=== PATIENT | female | born 1945 | race Caucasian/White ===

== ENCOUNTER 2019-11-07 14:16 | Inpatient (IN) | payer MEDICARE ==
[~2019-11-07] VITALS: Ht 149.9 cm; Wt 59.3 kg
[2019-11-07 15:00] VITALS: BP 160/70
[2019-11-07] MEDS ORDERED: diphenhydrAMINE 25mg capsule PO PRN (15:00)
[2019-11-07] MEDS ORDERED: ondansetron/PF 4mg/2ml inj IV PRN (15:00)
[2019-11-07] MEDS ORDERED: mag hydrox/Alum hydrox/simeth 30ml oral suspension PO PRN (15:00)
[2019-11-07] MEDS ORDERED: magnesium 2GM in 50ml NS 50 ML IV PRN (15:00)
[2019-11-07] MEDS ORDERED: potassium CL 10mEq/100ml bag 100 ML IV PRN ×2 (15:00)
[2019-11-07] MEDS ORDERED: magnesium 4gm in 100ml NS 100 ML IV PRN (15:00)
[2019-11-07] MEDS ORDERED: bisacodyl 10mg suppository rectal RC PRN (15:00)
[2019-11-07] MEDS ORDERED: potassium Cl 20 mEq SR tablet PO PRN ×2 (15:00)
[2019-11-07] MEDS ORDERED: acetaminophen 325mg tablet PO PRN (15:00)
[2019-11-07] MEDS ORDERED: magnesium hydroxide 30ml (MOM) UD suspension PO PRN (15:00)
[2019-11-07] MEDS ORDERED: acetaminophen 650mg rectal suppository RC PRN (15:00)
[2019-11-07] MEDS ORDERED: magnesium Cl slow-release 64mg tablet PO PRN (15:00)
[2019-11-07] MEDS: normal saline 1000ml 1,000 ML IV SCH (15:21)
[2019-11-07 15:26] LABS: HEMOGLOBIN 13.4 g/dl (12.0-16.0); RED BLOOD COUNT 4.17 X10'6 (4.20-5.60); WHITE BLOOD COUNT 7.2 X10'3 (4.5-11.0)
[2019-11-07 15:27] LABS: BASOPHILS % (AUTO) 0.6 % (0-1); EOSINOPHILS # (AUTO) 0.1 X10'3 (0-0.9); HEMATOCRIT 39.8 % (35.0-45.0); LYMPHOCYTES # (AUTO) 2.5 X10'3 (1.1-4.8); LYMPHOCYTES % (AUTO) 34.9 % (21-51); MEAN CORPUSCULAR HGB CONC 33.5 g/dL (33.0-36.5); MEAN CORPUSCULAR VOLUME 95.5 FL (78-98); MEAN PLATELET VOLUME 8.4 FL (7.4-10.4); MONOCYTES # (AUTO) 0.8 X10'3 (0-0.9); MONOCYTES % (AUTO) 10.6 % (2-12); NEUTROPHILS # (AUTO) 3.7 X10'3 (1.8-7.7); NEUTROPHILS % (AUTO) 51.9 % (42-75); PLATELET COUNT 274 X10'3 (140-440); RED CELL DISTRIBUTION WIDTH 13.3 % (11.5-14.5)
[2019-11-07 15:37] LABS: HEMOGLOBIN A1C 5.8 % (4.5-6.2)
[2019-11-07 15:40] LABS: PARTIAL THROMBOPLASTIN TIME 24 SECONDS (22-32)
[2019-11-07 15:51] LABS: ALANINE AMINOTRANSFERASE 20 U/L (12-78); ALBUMIN 3.4 G/DL (3.4-5.0); ALBUMIN/GLOBULIN RATIO 0.9 (1.1-1.5); ALKALINE PHOSPHATASE 65 IU/L (46-116); ANION GAP 7 (8-16); ASPARTATE AMINO TRANSFERASE 15 U/L (10-37); BILIRUBIN,TOTAL 0.4 MG/DL (0.1-1.0); BLOOD UREA NITROGEN 20 MG/DL (7-18); BUN/CREATININE RATIO 21.1 (6.6-38.0); CALCIUM 9.2 MG/DL (8.5-10.1); CHLORIDE 107 MMOL/L (99-107); CREATININE 0.95 MG/DL (0.40-0.90); GLUCOSE 132 MG/DL (70-104); MAGNESIUM 1.8 MG/DL (1.5-2.4); PHOSPHORUS 2.8 MG/DL (2.3-4.5); POTASSIUM 3.6 MMOL/L (3.5-5.1); SODIUM 142 MMOL/L (135-145); TOTAL CARBON DIOXIDE 27.7 MMOL/L (24-32); TOTAL PROTEIN 7.3 G/DL (6.4-8.2); eGFR 57 ML/MIN
--- NOTE | 2019-11-07 15:51 | NUR ---
PAGED ECHO "ECHO ORDERED FOR 315, IF YOU CAN COMPLETE IT BEFORE 1800 THAT WOULD BE GREAT, THANK YOU, HERACLIO MARION [id number]"
[2019-11-07 17:06] LABS: CLARITY,URINE SLIGHTLY CLOUDY (Clear); COLOR,URINE STRAW (Yellow); GLUCOSE, URINE NEGATIVE (Neg); KETONES,URINE NEGATIVE (Neg); LEUKOCYTE ESTERASE ,URINE SMALL (Neg); NITRITES, URINE NEGATIVE (Neg); OCCULT BLOOD,URINE SMALL (Neg); PROTEIN,URINE NEGATIVE (Neg); UROBILINOGEN,URINE 0.2 E.U/dL (0.2-1.0)
[2019-11-07] MEDS ORDERED: LISI1TAB28 PO ×2 (17:12→17:26)
[2019-11-07 17:15] LABS: UA COLLECTION TYPE CLN CATCH MIDSTREAM
[2019-11-07 17:17] LABS: MUCUS STRANDS NONE SEEN /LPF (Neg); SQUAMOUS EPITHELIAL CELL,UR FEW /LPF (FEW); TRANSITIONAL EPI CELLS,URINE FEW /HPF
[2019-11-07 17:19] LABS: BACTERIA,URINE NONE SEEN /HPF (Neg); WBC,URINE 0-4 /HPF (0-4)
--- NOTE | 2019-11-07 18:16 | NUR ---
Problems reprioritized. Patient report given, questions answered & plan of care reviewed with PRAMOD MARCUS.
--- NOTE | 2019-11-07 18:32 | NUR ---
patient taken to OR for pacemaker placement.
[2019-11-07] MEDS ORDERED: midazolam 2 mg/2 ml injection ONE (18:38)
[2019-11-07] MEDS ORDERED: LIDOcaine 1% W/epiNEPHrine 1:100,000 20ml vial ONE ×2 (18:38→19:40)
[2019-11-07] MEDS ORDERED: ceFAZolin 1000mg inj ONE (18:38)
[2019-11-07] MEDS ORDERED: proCHLORperazine 10 MG/2 ml inj ONE (18:38)
[2019-11-07] MEDS ORDERED: cefazolin/dext.iso 2gm/100ml 100 ML IV ONE (18:50)
[2019-11-07] MEDS ORDERED: magnesium 1 GM/2 ML inj ONE (19:25)
[2019-11-07] MEDS ORDERED: fentaNYL/PF 50MCG/1 ML 2ML syringe ONE (19:41)
[2019-11-07] MEDS: K and/or MAG REPLACEMENT MC SCH (20:00)
--- NOTE | 2019-11-07 20:41 | NUR ---
patient back to floor after Dual chamber pacemaker placement. Patient is alert, oriented x4. not under any stress.
[2019-11-07] MEDS: heparin, porcine 5000 units/ml vial SQ SCH (21:29)
[2019-11-07] MEDS: ibuprofen tablet 400 MG TABLET PO SCH (21:29)
[2019-11-07] MEDS ORDERED: HYDROcodone/acetaminophen 5mg/325mg tablet PO PRN (21:30)
[2019-11-07] MEDS ORDERED: HYDROcodone/acetaminophen 10/325mg tab PO PRN (21:30)
[2019-11-07 22:00] VITALS: BP 153/96
[2019-11-08] MEDS: CefTRIAXone/D5W-Rocephin 1gm 50 ML IV SCH ×2 (00:56→08:09)
--- NOTE | 2019-11-08 01:56 | NUR ---
Paged Dr. 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 Waiting for call back from Dr. Vargas. Addendum: 11/08/19 at 0224 by Jeannette Nielsen RN Dr. Vargas called acknowledged regarding the symptomatic failure to capture of the dual chamber pacemaker with the longest pause being 1.2 second. He ordered to interrogate her pacemaker. No other orders were given at this time.
[2019-11-08 02:00] VITALS: BP 154/80
[2019-11-08 04:00] LABS: BASOPHILS % (AUTO) 0.4 % (0-1); EOSINOPHILS # (AUTO) 0.1 X10'3 (0-0.9); EOSINOPHILS % (AUTO) 0.6 % (0-6); HEMATOCRIT 38.2 % (35.0-45.0); HEMOGLOBIN 12.8 g/dl (12.0-16.0); LYMPHOCYTES # (AUTO) 2.3 X10'3 (1.1-4.8); LYMPHOCYTES % (AUTO) 24.6 % (21-51); MEAN CORPUSCULAR HEMOGLOBIN 31.9 PG (27.0-31.0); MEAN CORPUSCULAR HGB CONC 33.5 g/dL (33.0-36.5); MEAN CORPUSCULAR VOLUME 95.2 FL (78-98); MEAN PLATELET VOLUME 8.2 FL (7.4-10.4); MONOCYTES # (AUTO) 0.7 X10'3 (0-0.9); MONOCYTES % (AUTO) 7.9 % (2-12); NEUTROPHILS # (AUTO) 6.2 X10'3 (1.8-7.7); NEUTROPHILS % (AUTO) 66.5 % (42-75); PLATELET COUNT 245 X10'3 (140-440); RED BLOOD COUNT 4.02 X10'6 (4.20-5.60); RED CELL DISTRIBUTION WIDTH 13.1 % (11.5-14.5); WHITE BLOOD COUNT 9.3 X10'3 (4.5-11.0)
[2019-11-08] MEDS: acetaminophen 325mg tablet PO PRN ×2 (04:01→12:17)
[2019-11-08] MEDS: normal saline 1000ml 1,000 ML IV SCH ×2 (04:02→18:18)
[2019-11-08 04:10] LABS: ALANINE AMINOTRANSFERASE 16 U/L (12-78); ALBUMIN 3.2 G/DL (3.4-5.0); ALBUMIN/GLOBULIN RATIO 0.9 (1.1-1.5); ALKALINE PHOSPHATASE 62 IU/L (46-116); ANION GAP 11 (8-16); ASPARTATE AMINO TRANSFERASE 16 U/L (10-37); BILIRUBIN,TOTAL 0.4 MG/DL (0.1-1.0); BLOOD UREA NITROGEN 14 MG/DL (7-18); BUN/CREATININE RATIO 19.7 (6.6-38.0); CALCIUM 8.6 MG/DL (8.5-10.1); CHLORIDE 108 MMOL/L (99-107); CHOL/HDL RATIO 2.5 (0.00-4.99); CHOLESTEROL 171 MG/DL (0-200); CREATININE 0.71 MG/DL (0.40-0.90); GLUCOSE 88 MG/DL (70-104); HDL CHOLESTEROL 68 MG/DL (35-60); LDL CHOLESTEROL 100 MG/DL (50-100); MAGNESIUM 1.7 MG/DL (1.5-2.4); PHOSPHORUS 3.6 MG/DL (2.3-4.5); POTASSIUM 3.4 MMOL/L (3.5-5.1); SODIUM 142 MMOL/L (135-145); TOTAL CARBON DIOXIDE 22.6 MMOL/L (24-32); TOTAL PROTEIN 6.9 G/DL (6.4-8.2); TRIGLYCERIDES 36 MG/DL (20-135); eGFR 80 ML/MIN
--- NOTE | 2019-11-08 04:20 | NUR ---
Called [employer] to have pacemaker interrogated. [employer] said that they paged a site safety representative and they will call us back to proceed. Addendum: 11/08/19 at 0443 by Mili De Anda RN [employer] called back and interrogated. Will send a site safety representative in person this am.
--- NOTE | 2019-11-08 06:31 | NUR ---
Problems reprioritized. Patient report given to Pat-RN, questions answered & plan of care reviewed with .
[2019-11-08 06:35] VITALS: BP 146/74
[2019-11-08] MEDS: K and/or MAG REPLACEMENT MC SCH ×2 (07:57→20:00)
[2019-11-08] MEDS: heparin, porcine 5000 units/ml vial SQ SCH ×2 (08:00→19:38)
[2019-11-08] MEDS: ibuprofen tablet 400 MG TABLET PO SCH ×4 (08:22→23:08)
[2019-11-08] MEDS ORDERED: lisinopril 20mg tablet PO SCH (08:53)
[2019-11-08 11:00] VITALS: BP 154/87
[2019-11-08] MEDS: HYDROchlorothiazide 12.5mg capsule PO SCH (14:47)
[2019-11-08 15:00] VITALS: BP 122/71
[2019-11-08 18:00] VITALS: BP 176/96
--- NOTE | 2019-11-08 18:00 | NUR ---
PATIENT'S PPM HAS BEEN 100% PACED THROUGHOUT THE SHIFT.B/P UP 170 SYS; DR. RIOS APPRISED, ORDERS TO FOLLOW. REPORTED OFF TO [place] LINER. DR. HARRIS INTO SEE PATIENT AT THIS TIME. HOB UP CALL LIGHT IN REACH. Addendum: 11/08/19 at 1933 by Dulce Maria Loera RN Amended: Links added.
[2019-11-08] MEDS ORDERED: hydrALAZINE 20mg/ml inj. IV PRN (18:35)
[2019-11-08] MEDS ORDERED: hydrALAZINE 20mg/ml inj. IV ONE (18:35)
[2019-11-08] MEDS: lactobacillus rhamnosus 10,000 MMU CELLS/CAPSULE PO SCH (19:37)
[2019-11-08 22:00] VITALS: BP 131/81
[2019-11-09] MEDS: acetaminophen 325mg tablet PO PRN ×2 (01:10→09:44)
[2019-11-09 02:00] VITALS: BP 134/86
[2019-11-09 05:55] LABS: BASOPHILS % (AUTO) 0.2 % (0-1); EOSINOPHILS # (AUTO) 0.1 X10'3 (0-0.9); EOSINOPHILS % (AUTO) 0.8 % (0-6); HEMATOCRIT 40.6 % (35.0-45.0); LYMPHOCYTES # (AUTO) 2.1 X10'3 (1.1-4.8); LYMPHOCYTES % (AUTO) 23.6 % (21-51); MEAN CORPUSCULAR HEMOGLOBIN 32.5 PG (27.0-31.0); MEAN CORPUSCULAR HGB CONC 34.4 g/dL (33.0-36.5); MEAN CORPUSCULAR VOLUME 94.6 FL (78-98); MEAN PLATELET VOLUME 8.7 FL (7.4-10.4); MONOCYTES # (AUTO) 0.8 X10'3 (0-0.9); MONOCYTES % (AUTO) 8.9 % (2-12); NEUTROPHILS # (AUTO) 5.9 X10'3 (1.8-7.7); NEUTROPHILS % (AUTO) 66.5 % (42-75); PLATELET COUNT 231 X10'3 (140-440); RED BLOOD COUNT 4.29 X10'6 (4.20-5.60); RED CELL DISTRIBUTION WIDTH 13.2 % (11.5-14.5); WHITE BLOOD COUNT 8.9 X10'3 (4.5-11.0)
[2019-11-09 06:27] LABS: ALANINE AMINOTRANSFERASE 26 U/L (12-78); ALBUMIN 3.4 G/DL (3.4-5.0); ALBUMIN/GLOBULIN RATIO 0.9 (1.1-1.5); ALKALINE PHOSPHATASE 65 IU/L (46-116); ANION GAP 11 (8-16); ASPARTATE AMINO TRANSFERASE 23 U/L (10-37); BILIRUBIN,TOTAL 0.5 MG/DL (0.1-1.0); BLOOD UREA NITROGEN 13 MG/DL (7-18); BUN/CREATININE RATIO 15.7 (6.6-38.0); CHLORIDE 102 MMOL/L (99-107); CREATININE 0.83 MG/DL (0.40-0.90); GLUCOSE 86 MG/DL (70-104); MAGNESIUM 1.8 MG/DL (1.5-2.4); PHOSPHORUS 3.3 MG/DL (2.3-4.5); POTASSIUM 3.1 MMOL/L (3.5-5.1); SODIUM 137 MMOL/L (135-145); TOTAL CARBON DIOXIDE 23.9 MMOL/L (24-32); TOTAL PROTEIN 7.1 G/DL (6.4-8.2); eGFR 67 ML/MIN
--- NOTE | 2019-11-09 06:28 | NUR ---
Problems reprioritized. Patient report given to Cris, questions answered & plan of care reviewed with .
[2019-11-09 07:00] VITALS: BP 156/74
[2019-11-09] MEDS: ibuprofen tablet 400 MG TABLET PO SCH (07:49)
[2019-11-09] MEDS: HYDROchlorothiazide 12.5mg capsule PO SCH (07:49)
[2019-11-09] MEDS: lactobacillus rhamnosus 10,000 MMU CELLS/CAPSULE PO SCH (07:50)
[2019-11-09] MEDS: heparin, porcine 5000 units/ml vial SQ SCH (07:50)
[2019-11-09] MEDS: CefTRIAXone/D5W-Rocephin 1gm 50 ML IV SCH (07:51)
[2019-11-09 08:00] VITALS: BP_SYST 89
[2019-11-09] MEDS ORDERED: lisinopril 20mg tablet PO SCH (08:00)
[2019-11-09] MEDS ORDERED: HYDR12.5 PO (10:27)
[2019-11-09] MEDS ORDERED: LACT1CAP26 PO (10:27)
[2019-11-09] MEDS ORDERED: LISI-600 PO (10:27)
--- NOTE | 2019-11-09 12:20 | NUR ---
The pt has remained stable. VSS. She reported headache and nausea has resolved nausea totally and headache 2/10 now S/P mediations. Discharge orders received from Dr Vargas. Pt removed from monitor. Pt IV removed catheter intact, no s/s of complications, and pt tolerated well. Discharge instructions given to pt and her family they all stated understanding and agreed with POC. Medications faxed to [facility] and hard copy given as well. Dressing has remained CDI and she is wearing her sling. All pt belongings accounted for. Pt taken by wheelchair to private vehicle.
== END 2019-11-09 12:45 | disposition home or self-care (01) | DRG 243 ==
LOC: MED 3N 14:16
PROVIDERS: ADMIT Family Medicine; ATTEND Family Medicine
PROC: 0JH606Z Insertion of Pacemaker, Dual Chamber into Chest Subcutaneous Tissue and Fascia, Open Approach (ICD-10-PCS; principal; 2019-11-07)
PROC: 02H63JZ Insertion of Pacemaker Lead into Right Atrium, Percutaneous Approach (ICD-10-PCS; 2019-11-07)
PROC: 02HK3JZ Insertion of Pacemaker Lead into Right Ventricle, Percutaneous Approach (ICD-10-PCS; 2019-11-07)
DX: I44.2 Atrioventricular block, complete (principal); N39.0 Urinary tract infection, site not specified; I10 Essential (primary) hypertension; M81.0 Age-related osteoporosis without current pathological fracture; Z80.9 Family history of malignant neoplasm, unspecified; Z82.3 Family history of stroke; Z82.49 Family history of ischemic heart disease and other diseases of the circulatory system; Z85.828 Personal history of other malignant neoplasm of skin; Z90.710 Acquired absence of both cervix and uterus; Z98.42 Cataract extraction status, left eye; Z98.41 Cataract extraction status, right eye; I44.1 Atrioventricular block, second degree
CPT/HCPCS: 33208; 36415; 71046; 80053; 80061; 81001; 83036; 83735; 83880; 84100; 85025; 85610; 85730; 87081; 87088; 93306; 99152; 99153; A4565; A4620; A6449; C1785; C1898; GO378; J0360; J0690; J0696; J0780; J1644; J2250; J2405; J3010; J3370; J3475; J7030